=== PATIENT | female | born 1985 | race Caucasian/White ===

== ENCOUNTER → 2017-09-25 16:28 | Outpatient (CLI) | payer OTHER, SELFPAY ==
[2017-09-30 14:11] LABS: HPV APTIMA, High Risk Negative (Negative)
== END ==
PROVIDERS: Visit Provider Obstetrics & Gynecology
DX: Z12.4 Encounter for screening for malignant neoplasm of cervix (principal)
CPT/HCPCS: 88175; G0145

== ENCOUNTER 2018-07-31 10:17 | Emergency (ER) | payer OTHER, SELFPAY ==
[2018-07-31 10:18] VITALS: BP 145/70; PULSE 77; RESP 16; TEMP 36.8; BMI 35.2
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
--- NOTE | 2018-07-31 10:58 | MRI_ITS ---
STUDY: MRI RIGHT KNEE REASON FOR EXAM: Hyperextension injury this morning. TECHNIQUE: Standardized fat and water weighted pulse sequences were obtained in all 3 orthogonal planes. COMPARISON: Radiographs 07/31/2018. FINDINGS: There is a horizontal tear of the free margin of the posterior horn/body of the medial meniscus (proton-density sagittal images 10-17; proton density coronal images 16-18). Normal hyaline cartilage of the medial femorotibial compartment. There is a small bone contusion of the anterior aspect of the medial femoral condyle (T2 sagittal images 9, 10). Normal medial collateral ligamentous complex (MCL). Normal distal semimembranosus, gracilis and semitendinosus tendons. Normal lateral meniscus. Normal hyaline cartilage of the lateral femorotibial compartment. There is a bone contusion of the anterior aspect of the lateral tibial plateau (T2 coronal images 19-21). Normal proximal tibiofibular articulation. Normal lateral collateral (fibular) ligament. Normal popliteus tendon. Normal biceps femoris tendon. Normal anterior cruciate ligament (ACL). Normal posterior cruciate ligament (PCL). Normal congruent patellofemoral articulation. Normal hyaline cartilage of the patellofemoral compartment. Normal medial and lateral patellar retinaculum. Normal quadriceps tendon. Normal patellar tendon. There is mild edema in Hoffa's fat pad adjacent to the bone contusion of the anterior lateral tibial plateau. There is no joint effusion. There is mild edema in the anterior subcutis adipose space. The otherwise visualized osseous structures are unremarkable. MRI/Lower Ext Joint Only (Routine) IMPRESSION: Medial meniscal tear. Bone contusions of the anterior aspect of the lateral tibial plateau and anterior medial femoral condyle. Electronically Signed: Carlos Saenz MD at 13:00 EST Tel , Service support ,
[2018-07-31] MEDS: Ibuprofen 400 MG Tablet 800 MG PO (11:06)
[2018-07-31 13:57] VITALS: BP 124/78; PULSE 70; RESP 16; O2SAT 97
== END 2018-07-31 13:58 | disposition home or self-care (01) ==
PROVIDERS: Emergency Provider Emergency Medicine; Family Provider Internal Medicine; PCP Internal Medicine
DX: S83.241A Other tear of medial meniscus, current injury, right knee, initial encounter (principal); Y04.8XXA Assault by other bodily force, initial encounter; Y93.9 Activity, unspecified; Y92.239 Unspecified place in hospital as the place of occurrence of the external cause; Y99.0 Civilian activity done for income or pay
CPT/HCPCS: 73564; 73721; 99283

== ENCOUNTER → 2018-08-05 14:22 | Outpatient (CLI) | payer OTHER, SELFPAY ==
[2018-07-31 10:18] VITALS: BMI 35.2
--- NOTE | 2018-08-05 14:32 | VDLE_ITS ---
Reason For Study: LEG PAIN RIGHT LEFT GSV is normal. CFV is compressible, spontaneous, phasic, CFV is compressible, spontaneous, phasic, competent, and demonstrates normal competent and demonstrates normal augmentation. augmentation. FV is compressible, spontaneous, phasic, competent and demonstrates normal augmentation. POP V is compressible, spontaneous, phasic, competent and demonstrates normal augmentation. T/P Trunk is compressible. PTV is compressible. RT PerV is compressible. Procedure Exam performed in department. A preliminary report was called and/or faxed to Samantha Abarca. Interpretation Summary Deep veins of the right lower extremity are patent and compressible segmentally. There is no evidence of right lower extremity deep vein thrombosis. Valvular competence appears intact within the proximal deep venous system on the right . The right greater saphenous vein appears patent and compressible segmentally. Ordering Physician: Srinivas Abarca Referring Physician: Srinivas Abarca Performed By: Marlene Meza RVT
== END ==
PROVIDERS: Family Provider Internal Medicine; PCP Internal Medicine; Referring Provider Orthopaedic Surgery; Visit Provider Orthopaedic Surgery
DX: M79.604 Pain in right leg (principal)
CPT/HCPCS: 93971

== ENCOUNTER 2018-09-04 12:59 | Day surgery (SDC) | payer OTHER, SELFPAY ==
[2018-09-04] VITALS (7 sets, daily range): BP systolic 95–110; BP diastolic 57–69; PULSE 55–76; RESP 16–18; TEMP 36.1–36.8; O2SAT 97–100; BMI 35.5
[2018-09-04 13:21] LABS: Internal QC Validated? YES +Cl - CLEAR BKGD; Pregnancy, Urine Negative Negative
[2018-09-04] MEDS: Cefazolin 2 GM in 0.9% Normal Saline 100 ML IV (15:21)
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
[2018-09-04] MEDS: HYDROcodone Bitartrate/Apap 5/325 Tablet PO (17:36)
== END 2018-09-04 18:24 | disposition home or self-care (01) ==
LOC: SDC 13:00 → AC 13:00
PROVIDERS: Anesthesiology; Family Provider Internal Medicine; PCP Internal Medicine; Referring Provider Orthopaedic Surgery; Visit Provider Orthopaedic Surgery
PROC: (CPT 29870; principal; 2018-09-04 14:15)
DX: S83.241A Other tear of medial meniscus, current injury, right knee, initial encounter (principal); X50.1XXA Overexertion from prolonged static or awkward postures, initial encounter; Y93.89 Activity, other specified; Y92.89 Other specified places as the place of occurrence of the external cause; Y99.0 Civilian activity done for income or pay; J45.909 Unspecified asthma, uncomplicated
CPT/HCPCS: 01400; 29881; 81025; J7120; J2405

== ENCOUNTER → 2018-10-15 12:00 | Outpatient (CLI) | payer OTHER, SELFPAY ==
[2018-09-04 13:20] VITALS: BMI 35.5
[2018-10-21 11:59] LABS: HPV Reflexed? NOT INDICATED
== END ==
PROVIDERS: Visit Provider Obstetrics & Gynecology
DX: Z12.4 Encounter for screening for malignant neoplasm of cervix (principal)
CPT/HCPCS: 88175; G0145